=== PATIENT | male | born 1975 | race Caucasian/White ===

== ENCOUNTER 2018-08-18 10:17 | Emergency (ER) | payer MEDICAID, OTHER ==
[~2018-08-18] VITALS: Ht 167.6 cm; Wt 124.5 kg
[2018-08-18 10:32] VITALS: BP 150/97; PULSE 94; RESP 20; Ht 167.6 cm; Wt 124.5 kg
[2018-08-18] MEDS ORDERED: FLUCONAZOLE 150 MG TAB PO ONE (12:30)
[2018-08-18] MEDS ORDERED: SOD CHLORIDE 0.9% 2,000 ML IV STA (12:33)
[2018-08-18] MEDS ORDERED: METF-849 PO (13:49)
[2018-08-18] MEDS ORDERED: CLOT30CR24 TOP (13:50)
--- NOTE | 2018-08-18 13:54 | ERD ---
ER Documentation Chief Complaint Chief Complaint Complains of genital pain x 2 days HPI 43-year-old male presents with worsening redness and irritation of the foreskin and penis. He is unable to retract the foreskin. He also has complaints of 30 pound weight loss over the last few months, polyuria or excessive urination. He has a family history of diabetes. Last had a physical one year ago he states that his exam was normal. Denies fevers, shortness of breath, chest pain, abdominal pain, vomiting. ROS All systems reviewed and are negative except as per history of present illness. Medications Home Meds Active Scripts Clotrimazole* (Clotrimazole* AF) 1% - 30 Gm Cream.gm., 1 APPLIC TOP BID for 10 Days, TUB Prov:CONNIE IRVIN MD 08/18/18 Metformin* (Glucophage*) 500 Mg Tab, 500 MG PO BID, #60 TAB Prov:CONNIE IRVIN MD 08/18/18 Allergies Allergies: Coded Allergies: No Known Allergy (Unverified , 08/18/18) PMhx/Soc Medical and Surgical Hx: pt denies Medical Hx, pt denies Surgical Hx Hx Alcohol Use: No Hx Substance Use: No Smoking Status: Never smoker FmHx Family History: No diabetes, No coronary disease, No other Physical Exam Vitals Vital Signs Date Temp Pulse Resp B/P (MAP) Pulse Ox O2 O2 Flow FiO2 Time Delivery Rate 08/18/18 98.6 94 20 150/97 99 10:32 (114) Physical Exam Const: No acute distress Head: Atraumatic Eyes: Normal Conjunctiva ENT: Normal External Ears, Nose and Mouth. Neck: Full range of motion. No meningismus. Resp: Clear to auscultation bilaterally Cardio: Regular rate and rhythm, no murmurs Abd: Soft, non tender, non distended. Normal bowel sounds. Irritation and swelling and cracking of the uncircumcised foreskin with difficulty retracting. Scant whitish discharge. Testicles nontender normal size bilaterally. Skin: No petechiae or rashes Back: No midline or flank tenderness Ext: No cyanosis, or edema Neur: Awake and alert Psych: Normal Mood and Affect Result Diagram: 08/18/18 1246 08/18/18 1245 Results 24 hrs Laboratory Tests Test 08/18/18 12:32 08/18/18 12:41 08/18/18 12:45 08/18/18 12:46 Bedside Glucose 263 mg/dL Bedside Urine pH 5.5 (LAB) Bedside Urine 1+ Protein (LAB) Bedside Urine 0.50% Glucose (UA) Bedside Urine 2+ Ketones (LAB) Bedside Urine Blood 1+ Bedside Urine Negative Nitrite (LAB) Bedside Urine Trace Leukocyte Esterase (L Sodium Level 141 mmol/L Potassium Level 4.1 mmol/L Chloride Level 105 mmol/L Carbon Dioxide 28 mmol/L Level Anion Gap 8 Blood Urea Nitrogen 10 mg/dl Creatinine 0.65 mg/dl Est Glomerular > 60 mL/min Filtrat Rate mL/min Glucose Level 293 mg/dl Calcium Level 9.9 mg/dl White Blood Count 7.5 10^3/ul Red Blood Count 5.48 10^6/ul Hemoglobin 16.0 g/dl Hematocrit 48.2 % Mean Corpuscular 88.0 fl Volume Mean Corpuscular 29.2 pg Hemoglobin Mean Corpuscular 33.2 g/dl Hemoglobin Concent Red Cell 12.1 % Distribution Width Platelet Count 215 10^3/UL Mean Platelet 10.7 fl Volume Immature 0.400 % Granulocytes % Neutrophils % 70.4 % Lymphocytes % 21.7 % Monocytes % 6.0 % Eosinophils % 1.2 % Basophils % 0.3 % Nucleated Red Blood 0.0 /100WBC Cells % Immature 0.030 10^3/ul Granulocytes # Neutrophils # 5.3 10^3/ul Lymphocytes # 1.6 10^3/ul Monocytes # 0.5 10^3/ul Eosinophils # 0.1 10^3/ul Basophils # 0.0 10^3/ul Nucleated Red Blood 0.0 10^3/ul Cells # Current Medications Medications Dose Sig/Darnell Start Time Status Last (Trade) Ordered Route PRN Stop Time Admin Dose Reason Admin Fluconazole 150 mg ONCE ONCE 08/18/18 DC 08/18/18 (Diflucan) PO 12:30 12:46 08/18/18 12:31 Sodium 2,000 ml @ Q1H STAT 08/18/18 DC 08/18/18 Chloride 2,000 mls/hr IV 12:33 12:46 08/18/18 13:32 Procedures/MDM Recheck 263. Urine shows 2+ ketones glucose. Patient presents with signs symptoms of balanitis and new onset diabetes. 1 L normal saline IV, bicarb is normal. CMP is otherwise without acute abnormalities and CBC normal. Patient shows no evidence of DKA, signs of abdominal pain, sepsis, additional concerning abnormalities. Patient will be initiated with Glucophage, Lotrimin, recommendations for primary care and return precautions. He was administered Diflucan 150 mg by mouth here for his balanitis. He has trace leukocytes although I suspect this is contamination from the balanitis. The patient was stable with no new complaints during the ER course. Clinically, there is no current evidence to suggest meningitis, sepsis, acute abdomen, pneumonia, stroke, acute coronary syndrome, pulmonary embolism, aortic dissection or any other emergent condition appearing to require further evaluation or hospitalization. Patient counseled regarding my diagnostic impression and care plan. Prior to discharge all questions answered. Pt agrees with treatment plan and understands strict return precautions. Pt is instructed to follow up with primary care provider within 24-48 hours. Precautionary instructions provided including instructions to return to the ER if not improving or for any worsening or changing symptoms or concerns. Departure Diagnosis: Primary Impression: Diabetes Diabetes mellitus type: other specified (including SILKE) Diabetes mellitus abstract writer insulin use: without penitentiary use Diabetes mellitus complication status: with unspecified complications Qualified Codes: E13.8 - Other specified diabetes mellitus with unspecified complications Additional Impression: Balanitis Condition: Stable Patient Instructions: Balanitis, DIABETES, General Info [facility]: [facility] Usted se randhawa hecho un examen mdico de control que le indica que no est en brenda condicin que requiera tratamiento urgente en el Departamento de Emergencia. Un estudio ms profundo y el tratamiento de phillips condicin pueden esperar sin ningn riesgo hasta que usted sea atendida/o en el consultorio de phillips mdico o brenda clnica. Es responsabilidad suya arreglar brenda silvina para el seguimiento del alina. MANEJO DE CONDICIONES NO URGENTES EN EL FUTURO 1) Si usted tiene un mdico de atencin primaria: Usted debera llamar a phillips mdico de atencin primaria antes de venir al departa mento de emergencia. Despus de las horas de consultorio, phillips doctor o phillips asociado/a est disponible por telfono. El mdico o enfermero de silvia en el servicio telefnico puede asesorarle por eliana medio para atender el problema, o alina contrario se puede programar brenda silvina. 2) Si usted no tiene un mdico de atencin primaria: Llame al mdico o clnica de referencia que aparece abajo devon las horas de consultorio para hacer brenda silvina para que le vean. CLINICAS: [facility] [phone] [facility] [phone] [facility] [phone] [place] [address] [phone] [place] [address] [phone] [place] [id number] [phone] Additional Instructions: tiene diabetes. simptomas de pene as un ungo. Cheque otro vez con phillips doctor primario en el proximo hauser or regresa para mas o nueva simptomas.. Va al phillips doctor/ specialista para mas evaluacon en el proximo semana. posiblemente necesita autorizado de phillips doctor primario para specialista. Regresa para fiebre, o mas o nueva simptomas. CONNIE IRVIN MD Aug 18, 2018 13:54
== END 2018-08-18 14:29 | disposition home or self-care (01) ==
LOC: FTE 10:17
DX: N48.1 Balanitis (principal); E13.8 Other specified diabetes mellitus with unspecified complications
CPT/HCPCS: 80048; 81003; 82962; 85025; 96360; 96361; J7030; Z7502; Z7610